=== PATIENT | female | born 1940 | race Caucasian/White ===

== ENCOUNTER 2017-12-02 09:14 | Outpatient (CLI) | payer MEDICARE, BC ==
[2017-12-02 10:37] LABS: #Basophils 0.1 thou/uL (0.0-0.2); #Eosinphils 0.4 thou/uL (0.0-0.7); #Lymphocytes 2.1 thou/uL (1.20-3.40); #Monocytes 0.8 thou/uL (0.11-0.59); #Neutrophils 4.8 thou/uL (1.40-6.50); %Basophils 0.8 % (0.0-1.0); %Eosinophils 4.5 % (0.0-10.0); %Lymphocytes 26.1 % (21.0-51.0); %Neutrophils 58.7 % (42.0-75.0); Hemoglobin 13.2 g/dL (12.0-16.0); Mean Corpuscular HGB CONC 32.9 g/dL (32.0-36.0); Mean Corpuscular Hemoglobin 30.9 pg (27.0-31.0); Mean Corpuscular Volume 93.8 fl (81.0-99.0); Mean Platelet Volume 6.3 fL (7.4-10.4); Platelet Count 310 thou/uL (130-400); RBC Distribution Width 12.5 % (11.5-14.5); Red Blood Cell (RBC) Count 4.29 mill/uL (4.20-5.40); White Blood Cell (WBC) Count 8.2 thou/uL (4.8-10.8)
[2017-12-02 10:46] LABS: INR-International Normal Ratio 0.9; Prothrombin Time 12.4 SEC (12.0-14.7)
[2017-12-02 11:08] LABS: Anion Gap 14 mmol/L (10-20); BUN (Urea Nitrogen) 16 mg/dL (9.8-20.1); Calc. Creatinine Clearance 0 mL/min (70-130); Carbon Dioxide 25 mmol/L (23-31); Chloride 103 mmol/L (98-107); Estimated GFR-MDRD 89; Glucose 92 mg/dL (83-110); Potassium 4.4 mmol/L (3.5-5.1); Sodium 138 mmol/L (136-145)
--- NOTE | 2017-12-02 11:52 | RAD ---
TWO VIEW CHEST: Comparison: 05-19-15 Clinical history: Pre-operative evaluation. FINDINGS: There is a linear density at the left lung lateral lung base, grossly stable and may relate to scarri ng. Lungs are mildly hyperinflated. Retrocardiac density indicates hiatal hernia. Chest is otherwise stable. IMPRESSION: Stable chest. POS: [facility]
--- NOTE | 2017-12-26 16:34 | EKG ---
Test Reason : Blood Pressure : / mmHG Vent. Rate : 080 BPM Atrial Rate : 080 BPM P-R Int : 134 ms QRS Dur : 082 ms QT Int : 364 ms P-R-T Axes : 052 048 010 degrees QTc Int : 419 ms Normal sinus rhythm Septal infarct , age undetermined Abnormal ECG No previous ECGs available Confirmed by DR. Rissa STEELE ([id number]) on 12/26/2017 4:34:14 PM Referred By: LAURYN Confirmed By:DR. Rissa STEELE
== END 2017-12-02 09:15 | disposition home or self-care (01) ==
LOC: LABBT 09:14
PROVIDERS: ATTEND Orthopaedic Surgery Hand Surgery
DX: Z01.818 Encounter for other preprocedural examination (principal); G56.01 Carpal tunnel syndrome, right upper limb
CPT/HCPCS: 71046; 80048; 85025; 85610; 85730; 93005; 93010

== ENCOUNTER 2017-12-09 05:49 | Day surgery (SDC) | payer MEDICARE, BC ==
[2017-12-02 09:42] VITALS: BMI 35.9
[2017-12-09] MEDS ORDERED: Fentanyl 100 MCG/2 ML VIAL ONE (06:02)
[2017-12-09] MEDS ORDERED: CEFAZOLIN/Water 2 GM/20 ML SYRINGE ONE (06:05)
[2017-12-09] MEDS ORDERED: Bupivacaine PF 0.5% 30 ML VIAL ONE (06:27)
[2017-12-09] MEDS ORDERED: Bacitracin Zinc Ointment 30 gm TUBE ONE (06:27)
[2017-12-09] MEDS ORDERED: Sodium Chloride 0.9% 0 ML ONE (06:27)
[2017-12-09] MEDS ORDERED: Betamet Acet/Betamet Na Ph 30 MG/5 ML VIAL ONE (06:43)
[2017-12-09] MEDS ORDERED: Ketorolac Tromethamine 30 MG/ML VIAL ONE ×2 (08:52→11:07)
--- NOTE | 2017-12-09 09:16 | OP ---
DATE OF PROCEDURE: 12/09/2017 PREOPERATIVE DIAGNOSIS: Right carpal tunnel syndrome. POSTOPERATIVE DIAGNOSIS: Right carpal tunnel syndrome. FINDINGS: A very tight transverse carpal ligament with a formation over a 1 centimeter area, median nerve in the central carpal tunnel region. No flexor tenosynovitis, type 1 motor nerve takeof f without a separate compression. PROCEDURE PERFORMED: 1. Carpal tunnel release. 2. Application of 3 mL Celestone injection into the carpal tunnel. SURGEON: Oscar Phillips M.D. ANESTHESIA: General LMA technique, SHUTTLE FITTING SUPERVISOR, Qing Joao. INDICATIONS: Failed conservative treatment with proven clinical and electrodiagnostic carpal tunnel syndrome, greater than 1 year duration. DESCRIPTION OF PROCEDURE: After successful general LMA technique intubation, the patient had the oswaldo eout done appropriately, had been prepped and draped and underwent injection with 10 mL 0.5% Marcaine vijaya-incisional, 2.5 cm incision outlined on the wrist, as far distal as transverse as Molina's card inal line, as far proximally 5 cm distal to the volar flexion crease. It was in line with the ring f sarita from medial to lateral. This was carried through skin and subcutaneous tissue, developed down to where we could see the rasmussen ris longus and slightly ulnar to that. We then found the transverse carpal ligament. With self-phan ining retraction, we then visualized transcarpal ligament and began to open it from the mid portion d istally using a combination of a Northway blade and tenotomy scissors. We then performed the same tech nique from the mid portion proximally using a combination of Northway blade and tenotomy scissors under direct visualization. The entire transverse carpal ligament was released into the level of the vola r wrist fascia. We inspected the area found the stippling in early hourglass formation over a 1 cm a gurpreet and visualized the flexor tendons where there was no thickening, so no tenosynovectomy was indica sheldon. Tourniquet released. Hemostasis obtained. Digital drip technique for the 3 mL of Celestone along th e median nerve area was stippling and then closed the incision with interrupted 4-0 nylon in a mattre ss pattern. Bulky dressing was applied and the patient left the operating room without complication.
[2017-12-09] MEDS ORDERED: Ondansetron HCl/PF 4 MG/2 ML Vial ONE (11:07)
[2017-12-09] MEDS ORDERED: PHENYLEPHRINE-NS 100 MCG/ML 10 ML SYRINGE ONE (11:07)
[2017-12-09] MEDS ORDERED: PROPOFOL 200 MG/20 ML VIAL ONE (11:07)
[2017-12-09] MEDS ORDERED: Dexamethasone 20 MG/5 ML VIAL ONE (11:07)
[2017-12-09] MEDS ORDERED: Lidocaine 1% PF 5 ML VIAL ONE (11:07)
[2017-12-09] MEDS ORDERED: Metoclopramide HCl 10 MG/2 ML VIAL ONE (11:07)
== END 2017-12-09 10:00 | disposition home or self-care (01) ==
LOC: SDC 05:49
PROVIDERS: ATTEND Orthopaedic Surgery Hand Surgery
PROC: 01N50ZZ Release Median Nerve, Open Approach (ICD-10-PCS; principal; 2017-12-09)
DX: G56.01 Carpal tunnel syndrome, right upper limb (principal); E03.9 Hypothyroidism, unspecified; E78.5 Hyperlipidemia, unspecified; M19.90 Unspecified osteoarthritis, unspecified site; K21.9 Gastro-esophageal reflux disease without esophagitis; G90.2 Horner's syndrome; J30.1 Allergic rhinitis due to pollen; Z79.1 Long term (current) use of non-steroidal anti-inflammatories (NSAID); Z79.51 Long term (current) use of inhaled steroids; Z79.899 Other long term (current) drug therapy; Z91.013 Allergy to seafood; Z98.51 Tubal ligation status; Z96.653 Presence of artificial knee joint, bilateral; Z90.49 Acquired absence of other specified parts of digestive tract; Z90.710 Acquired absence of both cervix and uterus; Z90.722 Acquired absence of ovaries, bilateral; Z90.79 Acquired absence of other genital organ(s); Z98.890 Other specified postprocedural states
CPT/HCPCS: 96372; A4216; J0131; J0702; J1100; J1885; J2001; J2405; J2704; J2765; J3010; J3490; S0020

== ENCOUNTER 2018-03-18 09:02 | Outpatient (CLI) | payer MEDICARE, BC ==
[2018-03-18 10:20] LABS: Bilirubin Negative (Negative); Blood, Urine Negative (Negative); Clarity CLEAR (Clear); Glucose, Urine (Dipstick) Negative (Negative); Leukocyte Small (Negative); Nitrite Negative (Negative); Protein, Urine (Dipstick) Negative (Neg-Trace); Specific Gravity, Urine 1.021 (1.002-1.036); Urobilinogen 0.2 mg/dL (0.2-1.0)
[2018-03-18 10:21] LABS: Hemoglobin 13.3 g/dL (12.0-16.0); Mean Corpuscular HGB CONC 32.7 g/dL (32.0-36.0); Mean Corpuscular Hemoglobin 29.5 pg (27.0-31.0); Mean Corpuscular Volume 90.3 fl (81.0-99.0); Mean Platelet Volume 5.8 fL (7.4-10.4); Platelet Count 394 thou/uL (130-400); RBC Distribution Width 12.2 % (11.5-14.5); Red Blood Cell (RBC) Count 4.51 mill/uL (4.20-5.40); White Blood Cell (WBC) Count 12.4 thou/uL (4.8-10.8)
[2018-03-18 10:23] LABS: Bacteria/HPF None Seen HPF (None Seen); Hyaline Casts/LPF 0-3 HYALINE CAST LPF (0-3 Hyaline); Pathc Cast-AUWi Flag 0.29 (0-2.49); Squamous Epithelial 0-3 HPF (0-3); WBC/HPF 0-3 HPF (0-3)
[2018-03-18 10:35] LABS: Anion Gap 14 mmol/L (10-20); BUN (Urea Nitrogen) 21 mg/dL (9.8-20.1); Calc. Creatinine Clearance 0 mL/min (70-130); Calcium 9.7 mg/dL (7.8-10.44); Carbon Dioxide 25 mmol/L (23-31); Chloride 101 mmol/L (98-107); Estimated GFR-MDRD 84; Glucose 96 mg/dL (83-110); Potassium 3.6 mmol/L (3.5-5.1); Sodium 136 mmol/L (136-145)
[2018-03-18 10:38] LABS: INR-International Normal Ratio 0.9; Prothrombin Time 12.7 SEC (12.0-14.7)
== END 2018-03-18 09:03 | disposition home or self-care (01) ==
LOC: LABBT 09:02
PROVIDERS: ATTEND Orthopaedic Surgery
DX: Z01.812 Encounter for preprocedural laboratory examination (principal); M19.012 Primary osteoarthritis, left shoulder
CPT/HCPCS: 80048; 81001; 85027; 85610; 86850; 86900; 86901

== ENCOUNTER 2018-03-18 09:15 | Observation (INO) | payer MEDICARE, BC ==
[2018-03-18 09:24] VITALS: BMI 35.7
[2018-03-19] MEDS ORDERED: Fentanyl 100 MCG/2 ML VIAL ONE ×3 (06:27→10:15)
[2018-03-19] MEDS ORDERED: Midazolam HCl 2 mg/2 ml Vial ONE (06:27)
[2018-03-19] MEDS ORDERED: CEFAZOLIN/Water 2 GM/20 ML SYRINGE ONE (06:29)
[2018-03-19] MEDS ORDERED: traMADol HCl 50 MG TAB PO PRN (07:19)
[2018-03-19] MEDS ORDERED: Ondansetron HCl/PF 4 MG/2 ML Vial IVP PRN ×2 (07:19→08:24)
[2018-03-19] MEDS ORDERED: Zolpidem Tartrate 5 MG TAB PO PRN (07:19)
[2018-03-19] MEDS ORDERED: HYDROcodone/Acetaminophen 5/325 mg Tablet PO PRN (07:19)
[2018-03-19] MEDS ORDERED: Ropivacaine 0.2% 550 ML 550 ML NERVE BLCK SCH (07:19)
[2018-03-19] MEDS ORDERED: Promethazine HCl 25 MG/ML VIAL IM PRN ×2 (07:19→08:24)
[2018-03-19] MEDS ORDERED: Fentanyl 100 MCG/2 ML VIAL IV PRN (07:20)
--- NOTE | 2018-03-19 08:18 | HP ---
CHIEF COMPLAINT: Left shoulder pain. HISTORY OF PRESENT ILLNESS: Ms. Ball is a 77-year-old female who presented with a year of shoul nicole pain 5/10 or greater. The patient was referred to me by Dr. Phillips. She denies numbness or tin gling. She recently underwent a carpal tunnel release. She has a history of CMC joint arthritis. T he patient presented to me to evaluate for her left shoulder pain. PAST MEDICAL HISTORY: 1. Hepatitis. 2. Urinary incontinence. 3. Osteoarthritis. 4. Acid reflux. 5. Billy syndrome. 6. Uterine prolapse. 7. Seasonal allergies. PAST SURGICAL HISTORY: Bilateral total knee arthroplasty, cholecystectomy, dilation and curettage, v aginal hysterectomy also with pelvic reconstruction. CURRENT MEDICATIONS: Acetaminophen, glucosamine, hydrocodone 5/325, levothyroxine, lysine, meloxicam , multivitamin, omeprazole, triamcinolone and vitamin B. ALLERGIES: LIPITOR, ZOCOR, PRAVACHOL and SHRIMP. SOCIAL HISTORY: She is nonsmoker, occasional alcohol. The patient lives alone near her sister. The patient has 2 children. She is and recently moved here. PHYSICAL EXAMINATION: GENERAL: Alert and oriented female in no acute distress, resting comfortably in bed. HEENT: Normocephalic and atraumatic. Extraocular muscles intact. LUNGS: Unlabored breathing. HEART: Regular rate. ABDOMEN: Obese, soft, nontender, nondistended. SHOULDER: Left shoulder. The patient has elevation of about 70 degrees of external rotation of 30. The patient has poor supraspinatus strength 3/5. Neurovascular intact distally, 2+ pulses. LABORATORY AND X-RAY FINDINGS: She had a MRI that showed a full thickness rotator cuff tear with ret raction, visualization of the humeral head consistent with rotator cuff arthropathy changes. The patient's laboratory values, H&H 13 and 39. The patient's INR is 0.9. She has a 0.68 creatinine . The patient's UA had small leukocytes, but no other bacteria were found. The patient has negative symptoms. Blood type and screen were in place. IMPRESSION: A left shoulder rotator cuff arthropathy. ASSESSMENT AND PLAN: The patient will be taken for left reverse shoulder arthroplasty. I discussed with patient the risks and benefits of the surgery to include pain, scar, bleeding, infection, damage to vital structures, decreased range of motion, strength, continued pain despite surgical interventi on. The patient understands performed a biceps tenodesis at that time. The patient understands the risks and benefits of procedure, and she elected to proceed.
[2018-03-19] MEDS ORDERED: Promethazine HCl 25 MG/ML VIAL SLOW IVP PRN (08:24)
[2018-03-19] MEDS ORDERED: Bisacodyl 10 MG SUPP PR PRN (08:55)
[2018-03-19] MEDS ORDERED: HYDROcodone/Acetaminophen 10/325 mg Tablet PO PRN ×2 (08:55)
[2018-03-19] MEDS ORDERED: Methocarbamol 500 MG TAB PO PRN (08:55)
[2018-03-19] MEDS ORDERED: Acetaminophen 325 MG TAB PO PRN (08:55)
[2018-03-19] MEDS ORDERED: diphenhydrAMINE 50 MG CAP PO PRN (08:55)
[2018-03-19] MEDS ORDERED: Milk Of Magnesia 30 ML UDCUP PO PRN (08:55)
[2018-03-19] MEDS ORDERED: Methocarbamol 1 GM/10 ML VIAL SLOW IVP PRN (08:55)
[2018-03-19] MEDS ORDERED: Vancomycin HCl 1 GM in Premix Bag 1 BAG IVPB SCH (09:00)
[2018-03-19] MEDS ORDERED: Tranexamic Acid 1,000 MG in Sodium Chloride 0.9% 100 ML IVPB SCH (09:15)
[2018-03-19] MEDS ORDERED: Promethazine HCl 25 MG/ML VIAL ONE (10:26)
[2018-03-19] MEDS: Famotidine 20 MG TAB PO SCH ×2 (12:37→21:23)
[2018-03-19] MEDS ORDERED: Ropivacaine 0.5% HCl/PF (150 MG/30 ML VIAL) ONE (12:45)
[2018-03-19] MEDS ORDERED: Ropivacaine 0.2% HCl/PF (40 MG/20 ML VIAL) ONE (12:45)
[2018-03-19] MEDS ORDERED: Glycopyrrolate 0.2 MG/ML 5 ML SYRINGE ONE (12:47)
[2018-03-19] MEDS ORDERED: PROPOFOL 200 MG/20 ML VIAL ONE (12:47)
[2018-03-19] MEDS ORDERED: Lidocaine 1% PF 5 ML VIAL ONE (12:47)
[2018-03-19] MEDS ORDERED: PHENYLEPHRINE-NS 100 MCG/ML 10 ML SYRINGE ONE (12:47)
[2018-03-19] MEDS ORDERED: ePHEDrine/0.9% NaCl/PF SYRINGE 50 mg/10 ml ONE (12:47)
[2018-03-19] MEDS: Ondansetron ODT 4 MG TAB PO PRN ×2 (14:43→21:38)
[2018-03-19] MEDS: CEFAZOLIN/Water 2 GM/20 ML SYRINGE SLOW IVP SCH ×2 (14:43→21:23)
[2018-03-19] MEDS: Ketorolac Tromethamine 30 MG/ML VIAL IVP PRN (22:33)
[2018-03-20] MEDS: HYDROcodone/Acetaminophen 5/325 mg Tablet PO PRN ×2 (02:08→09:46)
[2018-03-20] MEDS: traMADol HCl 50 MG TAB PO PRN ×2 (03:23→12:18)
[2018-03-20] MEDS ORDERED: Levothyroxine Sodium 25 MCG TAB PO SCH (06:00)
[2018-03-20] MEDS: Ketorolac Tromethamine 30 MG/ML VIAL IVP PRN (06:22)
[2018-03-20] MEDS: Famotidine 20 MG TAB PO SCH (08:18)
[2018-03-20] MEDS ORDERED: Meloxicam 15 MG TAB PO SCH (09:00)
[2018-03-20] MEDS ORDERED: Lysine 500 MG TAB PO SCH (09:00)
[2018-03-20] MEDS ORDERED: Multivit, Therapeutic 1 TAB PO SCH (09:00)
[2018-03-20] MEDS ORDERED: Fluticasone Propionate Nasal Spray 16 gm Bottle NASAL SCH (09:00)
--- NOTE | 2018-03-20 09:50 | OP ---
PREOPERATIVE DIAGNOSIS: Left rotator cuff arthropathy. POSTOPERATIVE DIAGNOSIS: Left rotator cuff arthropathy. PROCEDURE PERFORMED: Left reverse total shoulder arthroplasty. STAFF: Chau Garduno M.D. IC DESIGN ENGINEER: Selvin Estrada PA-C. ANESTHESIA: Beasley. The patient received a general endotracheal intubation with an interscalene block. ESTIMATED BLOOD LOSS: 300 mL. TOURNIQUET TIME: None. ANTIBIOTICS: Ancef 2 grams, vancomycin 1 gram. The patient received 1 gram of TXA. IMPLANTS: The patient had a Tornier Flex 3B stem with a 0 centered tray and +6 mm polyethylene. The patient had a 36 mm eccentric sphere and a 25 mm baseplate ; 26, 20, 32, and 18 mm and 2 nonlocking and 2 locking screws. COMPLICATIONS: None. HISTORY OF PRESENT ILLNESS: Ms. Ball is a pleasant 77-year-old female presenting with left shoulder pain, limited overhead elevation pain with all function. Neurovascular intact. I assessed risks and benefits of left shoulder reverse arthroplasty include pain, scar, bleeding, infection, damage to vital structures, decreased range of motion or strength, continued pain despite surgical intervention. The patient understood those risks and benefits and elected to proceed. DESCRIPTION OF PROCEDURE: Timeout was performed to the patient's left upper extremity as the operative site based on sight, consents, and markings. After completion of timeout, the patient's left upper extremity was prepped and draped in sterile fashion. The patient was placed in a beach chair position with all bony prominences well padded. The patient had a deltopectoral incision made. Deltopectoral interval was entered. We took down remnant subscapularis, very minimal fatty atrophy kind of subscapularis. No large subscapularis interval. We took that down and exposed the humerus. The vein was lost due to position within the interval and that was cauterized. We cut the head, began broaching up at about 20 degrees to 30 mm 3B head with a stem. We reamed the top to ensure deposition. We then placed man hole cover , opened the shoulder. We debrided off the labrum. We placed our center hole which we end up with little bit superior within the tear. Therefore, I reamed and cleaned up the glenoid. Once we reamed and cleaned up the glenoid, we exposed it and noticed we were a little superior, we then then impacted our 25 mm baseplate into the glenoid, placed 2 nonlocking screws anterior and posterior, and 2 locking screws superiorly and inferiorly. We then placed our 2 mm offset glenosphere with a 2 mm inferiorly. We overlapped the patient's inferior glenoid lip. We then moved back to our humerus. We trialed first at 9 with a 6 mm poly, reduced into place. The patient had no shuck. She had a little bit of gapping and external rotation, but had good position tracked throughout, got overhead. I liked the overall alignment of the implant. She had no instability. It was very difficult to dislocate, therefore we washed. We took the remnant subscapularis scar plane and placed a drill hole through the humerus , placed our final implant in place using #5 that we passed the implant around to help with holding in the bone. We then sewed the remnant subscap as a plane anteriorly. We closed the remainder. We then closed the deltopectoral interval with 0 Vicryl, 2-0, and lyndon. The patient will be sent to the hospital. We will admit overnight, see how she has done in the morning. If her pain is controlled, she can go home with an elbow, wrist, and hand motion. Follow up in 2 weeks, will be discharged home with pain medications. KATHI
[2018-03-20 15:46] VITALS: BP 120/77; TEMP 97.6
== END 2018-03-20 15:30 | disposition home or self-care (01) ==
LOC: INTOOBSV 03-19 05:44 → SURG A 03-19 05:44 → SJJU 03-19 10:02
PROVIDERS: ADMIT Orthopaedic Surgery; ATTEND Orthopaedic Surgery
PROC: 0RQK0ZZ Repair Left Shoulder Joint, Open Approach (ICD-10-PCS; principal; 2018-03-19)
DX: M19.012 Primary osteoarthritis, left shoulder (principal); K21.9 Gastro-esophageal reflux disease without esophagitis; Z88.8 Allergy status to other drugs, medicaments and biological substances; Z91.013 Allergy to seafood; Z79.899 Other long term (current) drug therapy; Z98.890 Other specified postprocedural states
CPT/HCPCS: 23472; 80048; 81001; 85027; 85610; 86850; 86900; 86901; 96374 ×2; 96375; 96376 ×2; 97139 ×3; 97530; A4306; G0378; G8978; G8979; G8980; G8987; G8988; G8989; J1885; J2001; J2250; J2550; J2704; J2795; J3010; J3370; Q0162

== ENCOUNTER 2018-12-17 08:04 | Outpatient (CLI) | payer MEDICARE, BC ==
--- NOTE | 2018-12-17 12:59 | RAD ---
CHEST TWO VIEWS: History: Pre op. Comparison: 12-02-17 FINDINGS: Cardiac silhouette and pulmonary vasculature are unremarkable. Mediastinum is midline. Hiatal hernia is similar in appearance to the prior exam. Mild parenchymal scarring at the lung bases. No evidence of pneumothorax. Left shoulder reverse prosthesis partially visualized. IMPRESSION: 1. Hiatal hernia. 2. Chronic type findings are stable. POS: [facility]
[2018-12-17 13:08] LABS: #Basophils 0.1 thou/uL (0.0-0.2); #Eosinphils 0.6 thou/uL (0.0-0.7); #Lymphocytes 3.1 thou/uL (1.20-3.40); #Monocytes 0.9 thou/uL (0.11-0.59); #Neutrophils 5.9 thou/uL (1.40-6.50); %Basophils 1.1 % (0.0-1.0); %Eosinophils 5.9 % (0.0-10.0); %Lymphocytes 29.1 % (21.0-51.0); %Monocytes 8.6 % (0.0-10.0); %Neutrophils 55.4 % (42.0-75.0); Hemoglobin 12.2 g/dL (12.0-16.0); Mean Corpuscular HGB CONC 32.8 g/dL (32.0-36.0); Mean Corpuscular Hemoglobin 29.9 pg (27.0-31.0); Mean Corpuscular Volume 91.4 fL (78.0-98.0); Mean Platelet Volume 6.4 fL (7.4-10.4); Platelet Count 339 thou/uL (130-400); RBC Distribution Width 12.4 % (11.5-14.5); Red Blood Cell (RBC) Count 4.08 mill/uL (4.20-5.40); White Blood Cell (WBC) Count 10.7 thou/uL (4.8-10.8)
[2018-12-17 13:10] LABS: Bilirubin Negative (Negative); Blood, Urine Negative (Negative); Clarity CLEAR (Clear); Glucose, Urine (Dipstick) Negative (Negative); Leukocyte Small (Negative); Nitrite Negative (Negative); Protein, Urine (Dipstick) Negative (Neg-Trace); Urobilinogen 0.2 mg/dL (0.2-1.0)
[2018-12-17 13:12] LABS: Bacteria/HPF None Seen HPF (None Seen); Hyaline Casts/LPF 0-3 HYALINE CAST LPF (0-3 Hyaline); Pathc Cast-AUWi Flag 0.29 (0-2.49); Squamous Epithelial 0-3 HPF (0-3); WBC/HPF 0-3 HPF (0-3)
[2018-12-17 13:31] LABS: Anion Gap 18 mmol/L (10-20); BUN (Urea Nitrogen) 12 mg/dL (9.8-20.1); Calc. Creatinine Clearance 0 mL/min (70-130); Calcium 9.9 mg/dL (7.8-10.44); Carbon Dioxide 20 mmol/L (23-31); Chloride 103 mmol/L (98-107); Estimated GFR-MDRD 82; Glucose 76 mg/dL (83-110); Sodium 137 mmol/L (136-145)
--- NOTE | 2018-12-17 21:32 | EKG ---
Test Reason : Blood Pressure : / mmHG Vent. Rate : 085 BPM Atrial Rate : 085 BPM P-R Int : 132 ms QRS Dur : 086 ms QT Int : 378 ms P-R-T Axes : 043 053 006 degrees QTc Int : 449 ms Normal sinus rhythm Anterior infarct (cited on or before 02-DEC-2017) Abnormal ECG When compared with ECG of 02-DEC-2017 10:17, Questionable change in initial forces of Anterior leads Confirmed by HENRY ROBLES M.D. ([id number]) on 12/17/2018 9:32:13 PM Referred By: LAURYN Confirmed By:HENRY ROBLES M.D.
== END 2018-12-17 08:05 | disposition home or self-care (01) ==
LOC: LABBT 08:04
PROVIDERS: ATTEND Orthopaedic Surgery Hand Surgery
DX: Z01.818 Encounter for other preprocedural examination (principal); S63.591A Other specified sprain of right wrist, initial encounter; M19.031 Primary osteoarthritis, right wrist
CPT/HCPCS: 71046; 80048; 81001; 85025; 93005; 93010

== ENCOUNTER 2019-01-08 05:18 | Day surgery (SDC) | payer MEDICARE, BC ==
[2018-12-17 11:04] VITALS: BMI 35.1
[2019-01-08] MEDS ORDERED: Bacitracin Zinc Ointment 30 gm TUBE ONE (06:42)
[2019-01-08] MEDS ORDERED: Bupivacaine PF 0.5% 30 ML VIAL ONE (06:42)
[2019-01-08] MEDS ORDERED: EPINEPHrine 1 MG/ML AMP ONE (06:42)
[2019-01-08] MEDS ORDERED: Fentanyl 100 MCG/2 ML VIAL ONE (06:57)
[2019-01-08] MEDS ORDERED: Midazolam HCl 2 mg/2 ml Vial ONE (07:02)
--- NOTE | 2019-01-08 12:13 | RAD ---
PLEASE DISREGARD THIS REPORT These images were taken on the wrong pt. RIGHT WRIST 2 VIEWS: Date: 01/08/19 HISTORY: Wrist surgery. Evaluation of fracture. FINDINGS: There is a transversely oriented, dorsally angulated, distal radial fracture. I do not see a definite associated ulnar fracture. IMPRESSION: Please disregard this report. Mildly impacted and moderately dorsally angulated distal radial fracture. POS: [facility]
[2019-01-08] MEDS ORDERED: Bupivacaine HCl 0.5%/Epinephrine 1:200,000/PF 30 ml Vial ONE (14:58)
[2019-01-08] MEDS ORDERED: PROPOFOL 200 MG/20 ML VIAL ONE (15:02)
[2019-01-08] MEDS ORDERED: Dexamethasone 20 MG/5 ML VIAL ONE (15:02)
[2019-01-08] MEDS ORDERED: ePHEDrine 50 MG/ML VIAL ONE (15:02)
[2019-01-08] MEDS ORDERED: Ondansetron PF 4 MG/2 ML Vial ONE (15:02)
[2019-01-08] MEDS ORDERED: Lidocaine 1% PF 5 ML VIAL ONE (15:02)
[2019-01-08] MEDS ORDERED: PHENYLEPHRINE-NS 100 MCG/ML 10 ML SYRINGE ONE (15:02)
--- NOTE | 2019-01-11 15:44 | OP ---
DATE OF PROCEDURE: 01/08/2019 PREOPERATIVE DIAGNOSES: 1. Scapholunate advanced collapse wrist with lunatomalacia. 2. Triangular fibrocartilage tear without impingement. FINDINGS: 1. Triangular fibrocartilage tear, fraying and incomplete, but central. 2. Marked chondromalacia involving the lunate, early arthritis with deterioration of the lunate, but maintained lunate fossa radius to early arthritis with marked sclerosis and changes of the radioscaphoid joint and the lateral edge of the radial capitate, but capitate over 95% reserved only small dorsal amount of grade 1-2 chondromalacia, also same found in the hamate. COMPLICATIONS: None. PROCEDURES PERFORMED: 1. Arthroscopic right wrist synovectomy, complete. 2. Arthroscopic triangular fibrocartilage complex resection. 3. Open right proximal row carpectomy, wrist. 4. C-arm supervision. 5. Application of short-arm splint. TOURNIQUET TIME: 73 minutes total. ESTIMATED BLOOD LOSS: 10 mL. ANESTHESIA: General LMA technique augmented by preoperative supraclavicular block. INDICATIONS FOR THE PROCEDURE: The patient had pain in wrist on both sides, which she developed without acute injury, but possibly secondary to 20-30 year ago event, pain over the radiocarpal joints. On her contralateral right wrist, she had a SLAC wrist, because of scapholunate diastasis which did not involve the lunate radius arc and on the right side, she had triangular fibrocartilage abnormality and lunatomalacia with deterioration of the lunate and obvious radioscaphoid and radial capitate degeneration. She also has on this side marked STT osteoarthritis as well. DESCRIPTION OF PROCEDURE: After successful general LMA technique, limb was prepped and draped. Time-out done appropriately. We then had the limb placed in in-line traction with Arthrex wrist tower, outlined the 3-4, 6U and 6R portals and began to do arthroscopic evaluation, with which we could easily drive through the lunate scaphoid articulation to see the capitate here we saw little erosions on the scaphoid side about 3-4 mm, but the capitate lunate was well preserved, but the lunate was deteriorated with marked loss of chondral surface while there were no such changes seen on the lunate fossa radius. The scaphoid and scaphoid fossa with the radius were deteriorated. She had a 5 mm, almost 6 mm long incomplete, but very thin tearing of the central triangular fibrocartilage. We trimmed to a stable rim without even penetrating into the distal radioulnar joint. Thus, there was no lunate impingement on the ulna. For this reason, we chose to do a proximal carpectomy, because the lunate would not participate actively in any type of repair without subjecting her to high risk for arthritic pain here. We then removed the arthroscope, closed the ulnar portal, and used the 2, 3 portal as part of the approach. We exsanguinated the limb, flattened the hand out of the tower and made an incision through skin, subcutaneous tissue, entering the interval between the third and fourth dorsal compartment. We preserved the retinaculum in a V-shaped entrance, almost zigzag, took the extensor digitorum communis only and extensor pollicis longus radially to expose the wrist capsule. We made a right angle exposure to preserve the ligament complex at because of the proximal radius carpectomy, identified via C-arm all 3 of the proximal row of bone as well as the capitate and tagged them with a K-wire. Then we began removing them gently with dissection blunt and sharp using the scissors ulnarly, first to triquetrum, then the lunate and we saw how much involvement with degeneration these 2 bones had in making our choice even more appropriate. We then removed the scaphoid and saw that the capitate reticular with the surface of the lunate fossa had excellent chondral congruity and thickening and no evidence of erosions. We released the capitate and it stayed central, so we did not pin it. The tourniquet was deflated. We obtained hemostasis. We closed the capsule in the L-shaped incision with an interrupted #1 Ethibond [id number] pattern. We closed the retinaculum with 2-0 Vicryl, subcutaneous closed with a running 3-0 Monocryl and the epidermal closure with interrupted 4-0 nylon in simple pattern. Bulky dressing applied. A volar short-arm splint. The patient left the operating room after C-arm confirmed excellent alignment in frontal sagittal plane. Job ID: [id number]
== END 2019-01-08 11:40 | disposition home or self-care (01) ==
LOC: SDC 05:18
PROVIDERS: ATTEND Orthopaedic Surgery Hand Surgery
PROC: 0MB54ZZ Excision of Right Wrist Bursa and Ligament, Percutaneous Endoscopic Approach (ICD-10-PCS; principal; 2019-01-08)
PROC: 0PBM0ZZ Excision of Right Carpal, Open Approach (ICD-10-PCS; 2019-01-08)
DX: S63.591A Other specified sprain of right wrist, initial encounter (principal); M19.031 Primary osteoarthritis, right wrist; M94.231 Chondromalacia, right wrist; M18.9 Osteoarthritis of first carpometacarpal joint, unspecified; G56.01 Carpal tunnel syndrome, right upper limb; M10.9 Gout, unspecified; K21.9 Gastro-esophageal reflux disease without esophagitis; E78.5 Hyperlipidemia, unspecified; E03.9 Hypothyroidism, unspecified; G90.2 Horner's syndrome; Z87.891 Personal history of nicotine dependence; Z79.1 Long term (current) use of non-steroidal anti-inflammatories (NSAID); Z79.899 Other long term (current) drug therapy; Z88.8 Allergy status to other drugs, medicaments and biological substances; Z91.013 Allergy to seafood; Z96.653 Presence of artificial knee joint, bilateral
CPT/HCPCS: 76000; 88304; 88305; 88311; 88331; 88334; J0171; J0670; J1100; J2001; J2250; J2405; J2704; J3010; J3490; S0020

== ENCOUNTER 2019-08-20 10:14 | Outpatient (CLI) | payer MEDICARE, BC ==
[2019-08-20 11:26] LABS: #Basophils 0.1 thou/uL (0.0-0.2); #Eosinphils 0.2 thou/uL (0.0-0.7); #Lymphocytes 3.3 thou/uL (1.20-3.40); #Monocytes 1.1 thou/uL (0.11-0.59); #Neutrophils 8.6 thou/uL (1.40-6.50); %Basophils 0.6 % (0.0-1.0); %Eosinophils 1.8 % (0.0-10.0); %Monocytes 8.6 % (0.0-10.0); Hemoglobin 10.8 g/dL (12.0-16.0); Mean Corpuscular HGB CONC 32.2 g/dL (32.0-36.0); Mean Corpuscular Hemoglobin 27.7 pg (27.0-31.0); Mean Platelet Volume 5.8 fL (7.4-10.4); Platelet Count 524 thou/uL (130-400); RBC Distribution Width 13.8 % (11.5-14.5); Red Blood Cell (RBC) Count 3.91 mill/uL (4.20-5.40); White Blood Cell (WBC) Count 13.4 thou/uL (4.8-10.8)
[2019-08-20 11:42] LABS: Anion Gap 14 mmol/L (10-20); BUN (Urea Nitrogen) 19 mg/dL (9.8-20.1); Calc. Creatinine Clearance 0 mL/min (70-130); Calcium 9.7 mg/dL (7.8-10.44); Carbon Dioxide 24 mmol/L (23-31); Chloride 102 mmol/L (98-107); Estimated GFR-MDRD 80; Glucose 80 mg/dL (83-110); Potassium 4.3 mmol/L (3.5-5.1); Sodium 136 mmol/L (136-145)
[2019-08-20 11:55] LABS: Bilirubin Negative (Negative); Blood, Urine Negative (Negative); Clarity Clear (Clear); Glucose, Urine (Dipstick) Normal (Negative); Leukocyte 500 Leu/uL (Negative); Nitrite Negative (Negative); Protein, Urine (Dipstick) Negative (Neg-Trace); RBC/HPF 0-3 HPF (0-3); Urobilinogen Normal mg/dL (Less than 2); WBC/HPF 0-3 HPF (0-3)
[2019-08-20 11:58] LABS: Bacteria/HPF 1+ HPF (None Seen)
--- NOTE | 2019-08-22 17:23 | EKG ---
Test Reason : Blood Pressure : / mmHG Vent. Rate : 077 BPM Atrial Rate : 077 BPM P-R Int : 134 ms QRS Dur : 076 ms QT Int : 350 ms P-R-T Axes : 049 049 013 degrees QTc Int : 396 ms Normal sinus rhythm Cannot rule out Anterior infarct (cited on or before 02-DEC-2017) Abnormal ECG When compared with ECG of 17-DEC-2018 11:54, QT has shortened Confirmed by ROSANNA HALEY (2) on 08/22/2019 5:23:24 PM Referred By: LAURYN Confirmed By:ROSANNA HALEY
== END 2019-08-20 10:15 | disposition home or self-care (01) ==
LOC: LABBT 10:14
PROVIDERS: ATTEND Orthopaedic Surgery Hand Surgery
DX: Z01.818 Encounter for other preprocedural examination (principal); M19.032 Primary osteoarthritis, left wrist
CPT/HCPCS: 80048; 81001; 85025; 93005; 93010

== ENCOUNTER 2019-08-24 05:32 | Day surgery (SDC) | payer MEDICARE, BC ==
[2019-08-20 10:32] VITALS: BMI 32.7
[2019-08-24] MEDS ORDERED: Clindamycin/D5W 600 mg/50 ml Premix Bag ONE (06:26)
[2019-08-24] MEDS ORDERED: Bacitracin Zinc Ointment 30 gm TUBE ONE (06:36)
[2019-08-24] MEDS ORDERED: Bupivacaine PF 0.5% 30 ML VIAL ONE (06:36)
[2019-08-24] MEDS ORDERED: Sodium Chloride 0.9% 10 ML ONE (06:36)
[2019-08-24] MEDS ORDERED: Thrombin 5000 UNITS/5 ML VIAL ONE (06:36)
[2019-08-24] MEDS ORDERED: Betamet Acet/Betamet Na Ph 30 MG/5 ML VIAL ONE (06:36)
[2019-08-24] MEDS ORDERED: Midazolam HCl 2 mg/2 ml Vial ONE (06:52)
[2019-08-24] MEDS ORDERED: Fentanyl 100 MCG/2 ML VIAL ONE ×2 (06:52→07:21)
[2019-08-24] MEDS ORDERED: Lidocaine 1% (PF) 30 ML VIAL ONE (06:52)
[2019-08-24] MEDS ORDERED: Fentanyl 100 MCG/2 ML VIAL IV PRN (07:17)
[2019-08-24] MEDS ORDERED: Zolpidem Tartrate 5 MG TAB PO PRN (07:17)
[2019-08-24] MEDS ORDERED: Ropivacaine 0.2% 550 ML 550 ML NERVE BLCK SCH (07:17)
[2019-08-24] MEDS ORDERED: Ondansetron PF 4 MG/2 ML Vial IVP PRN (07:17)
[2019-08-24] MEDS ORDERED: traMADol HCl 50 MG TAB PO PRN ×2 (07:17)
[2019-08-24] MEDS ORDERED: HYDROcodone/Acetaminophen 5/325 mg Tablet PO PRN ×2 (07:17)
[2019-08-24] MEDS ORDERED: Promethazine HCl 25 MG/ML VIAL IM PRN (07:17)
--- NOTE | 2019-08-24 17:07 | OP ---
DATE OF PROCEDURE: 08/24/2019 PREOPERATIVE DIAGNOSIS: Scaphoid lunate advanced collapse wrist, stage II to III. FINDINGS: Minimal capitate erosion primarily on the scaphoid side with marked lunate chondromalacia, triquetrum, degeneration, and intact lunate fossa. PROCEDURE PERFORMED: 1. Posterior interosseous nerve neurectomy, open. 2. Four-corner fusion of left wrist. SPECIMEN: Posterior interosseous nerve neurectomy specimen and again findings were extreme osteoarthritis and lunate erosion that if there was almost avascular necrosis without erosion of the fossa and marked degeneration of the scaphoid, but it was so wide and separate and did not affect the radial surface. TOURNIQUET TIME: 44 minutes. DESCRIPTION OF PROCEDURE: After successful general endotracheal, the limb prepped and draped. Time-out done appropriately. She had also a block, which gave excellent relief perioperatively. We exsanguinated the limb, inflated tourniquet to 250 mmHg pressure and identified via time-out that the consent matched the site, side, and procedure. The left upper extremity had a zigzag incision made, carried through skin and subcutaneous tissue, identified the superficial ulnar and superficial radial nerve primary and terminal branches and protected them. We then made a V-shaped incision in the retinaculum, found the extensor pollicis longus and extensor digitorum communis open both their compartments and into the wrist. We made a V-shaped incision to protect the capsular ligaments especially in light of fact that we might do a proximal carpectomy. We then inspected the bones, and found that the degenerative pattern described as (find) above. For this reason, we removed the triquetrum, then the lunate, and then the scaphoid to preserve the volar capsule. Again, the capitate wear was only approximately a 2 mm area deep volar and away from the articular away from the part that was triggered with the radius and there was a subchondral erosion approximately 3 mm with scaphoid head embedded in it because of the wide SLAC wrist deformity. Once this was done, we deflated the tourniquet and obtained hemostasis. We then reconstructed the wrist ligament and padded using a running 3-0 Prolene, reapproximated retinaculum over both the EPL and EDC to close these compartments with an interrupted 2-0 Vicryl undyed, and last but not least, we were able to perform a skin closure with a running 4-0 Monocryl subcutaneous and Steri-Strips. The patient left the operating room in a bulky dressing and short-arm splint. No evidence of anesthetic or operative complication. Job ID: [id number]
--- NOTE | 2019-08-24 18:01 | RAD ---
THREE VIEWS LEFT WRIST: 08/24/19 PROVIDED CLINICAL HISTORY: Scaphoid excision. FINDINGS: Comparison 01/08/19. Spot fluoroscopic images of the left wrist were performed during the course of the surgery by Dr. Dewayne mckeon. IMPRESSION: As above. POS: [facility]
== END 2019-08-24 11:35 | disposition home or self-care (01) ==
LOC: SDC 05:32
PROVIDERS: ATTEND Orthopaedic Surgery Hand Surgery
PROC: 0RGP04Z Fusion of Left Wrist Joint with Internal Fixation Device, Open Approach (ICD-10-PCS; principal; 2019-08-24)
PROC: 01B60ZZ Excision of Radial Nerve, Open Approach (ICD-10-PCS; 2019-08-24)
DX: M19.032 Primary osteoarthritis, left wrist (principal); M19.031 Primary osteoarthritis, right wrist; M75.121 Complete rotator cuff tear or rupture of right shoulder, not specified as traumatic; M77.11 Lateral epicondylitis, right elbow; M94.232 Chondromalacia, left wrist; E78.5 Hyperlipidemia, unspecified; E03.9 Hypothyroidism, unspecified; K21.9 Gastro-esophageal reflux disease without esophagitis; G90.2 Horner's syndrome; J30.1 Allergic rhinitis due to pollen; Z87.891 Personal history of nicotine dependence; Z79.1 Long term (current) use of non-steroidal anti-inflammatories (NSAID); Z79.899 Other long term (current) drug therapy; Z88.2 Allergy status to sulfonamides; Z91.013 Allergy to seafood; Z96.653 Presence of artificial knee joint, bilateral; Z98.890 Other specified postprocedural states
CPT/HCPCS: 25820; 64772; 73110; 76000; 88305; A4306; J0702; J2001; J2250; J2795; J3010; J3490; S0020

== ENCOUNTER 2020-10-04 09:27 | Outpatient (CLI) | payer MEDICARE, BC ==
--- NOTE | 2020-10-04 09:47 | RAD ---
XR Chest Pa Lat STANDARD HISTORY: Cough COMPARISON: 12/17/2018 FINDINGS: The heart size is normal. The aorta is tortuous. Hiatal hernia is again seen. There are pos toperative changes of left shoulder arthroplasty. There are degenerative changes in the spine. The lungs are well expanded without focal areas of consolidation, pneumothorax or pleural effusions. IMPRESSION: No radiographic evidence of acute cardiopulmonary process.
== END 2020-10-04 09:28 | disposition home or self-care (01) ==
LOC: BICRAD 09:27
PROVIDERS: ATTEND Internal Medicine Rheumatology
DX: R05 Cough (principal)
CPT/HCPCS: 71046

== ENCOUNTER 2021-08-04 10:31 | Emergency (ER) | payer OTHER, MEDICARE, BC | END 2021-08-04 12:30 | disposition home or self-care (01) | LOC: ERS 10:31 | DX: S00.03XA Contusion of scalp, initial encounter (principal); E03.9 Hypothyroidism, unspecified; M06.9 Rheumatoid arthritis, unspecified; W01.10XA Fall on same level from slipping, tripping and stumbling with subsequent striking against unspecified object, initial encounter | CPT/HCPCS: 70450 ==

== ENCOUNTER 2021-08-16 09:58 | Outpatient (CLI) | payer MEDICARE, BC | END 2021-08-16 09:59 | disposition home or self-care (01) | LOC: BICMAMMO 09:58 | PROVIDERS: ATTEND Family Medicine | DX: Z12.31 Encounter for screening mammogram for malignant neoplasm of breast (principal) | CPT/HCPCS: 77063; 77067 ==

== ENCOUNTER 2022-08-30 09:13 | Outpatient (CLI) | payer MEDICARE, BC | END 2022-08-30 09:14 | disposition home or self-care (01) | LOC: BICMAMMO 09:13 | PROVIDERS: ATTEND Family Medicine | DX: Z12.31 Encounter for screening mammogram for malignant neoplasm of breast (principal); Z91.89 Other specified personal risk factors, not elsewhere classified | CPT/HCPCS: 77063; 77067 ==

== ENCOUNTER 2023-11-27 09:35 | Outpatient (CLI) | payer MEDICARE, BC | END 2023-11-27 09:36 | disposition home or self-care (01) | LOC: BICMAMMO 09:35 | PROVIDERS: ATTEND Family Medicine | DX: Z12.31 Encounter for screening mammogram for malignant neoplasm of breast (principal); Z91.89 Other specified personal risk factors, not elsewhere classified | CPT/HCPCS: 77063; 77067 ==

== ENCOUNTER 2024-02-20 11:01 | Emergency (ER) | payer MEDICARE, BC ==
[2024-02-20] MEDS ORDERED: Orphenadrine Citrate 60 MG/2 ML VIAL ONE (11:32)
[2024-02-20] MEDS ORDERED: Ketorolac Tromethamine 30 MG (1 mL) VIAL ONE (11:32)
== END 2024-02-20 13:21 | disposition home or self-care (01) ==
LOC: ERS 11:01
DX: M54.50 Low back pain, unspecified (principal); E03.9 Hypothyroidism, unspecified; Z87.891 Personal history of nicotine dependence; Z79.899 Other long term (current) drug therapy
CPT/HCPCS: 96372; 99283; J1885; J2360